=== PATIENT | female | born 1940 | race Caucasian/White ===

== ENCOUNTER → 2016-09-20 07:37 | Outpatient (CLI) | payer MEDICARE, OTHER ==
[2014-04-01 11:45] VITALS: BMI 37.3
[~2016-09-20 07:37] MED LIST: BAYER CHEWABLE81 MG PO; CYCLOBENZAPRINE10 MG PO; DUTOPROL 50-121 EACH PO; LIPITOR40 MG PO; NORVASC10 MG PO; PLAVIX75 MG PO; PREVACID30 MG PO; SYNTHROID75 MCG PO; VALIUM5 MG PO; ZESTRIL40 MG PO
== END | disposition home or self-care (01) ==
LOC: D.MRI 07:37
DX: M54.5 Low back pain (principal)

== ENCOUNTER → 2016-10-29 08:19 | Outpatient (CLI) | payer MEDICARE, OTHER ==
[2014-04-01 11:45] VITALS: BMI 37.3
== END | disposition home or self-care (01) ==
LOC: D.RAD 08:19
DX: R12 Heartburn (principal)

== ENCOUNTER → 2017-01-30 15:02 | Outpatient (CLI) | payer MEDICARE, OTHER ==
[2014-04-01 11:45] VITALS: BMI 37.3
== END | disposition home or self-care (01) ==
LOC: D.CT 15:02
DX: S82.92XA Unspecified fracture of left lower leg, initial encounter for closed fracture (principal)

== ENCOUNTER 2018-06-04 10:49 | Outpatient (CLI) | payer MEDICARE, OTHER ==
[~2018-06-04] VITALS: Ht 154.9 cm; Wt 95.5 kg
--- NOTE | ~2018-06-04 | HEMODYNAMI ---
PATIENT:THAD CONNOLLY MEDICAL RECORD: [id number] : 40 LOCATION:J[facility] ADMISSION DATE: 06/04/18 Generatedon:06/04/201814:01 Patient name: THAD CONNOLLY Patient #: [id number] SSN: DO B: 1940 Date of study: 06/04/2018 Page: Of Hemodynamic Procedure Report Patient Data Patient Demographics Procedure consent was obtained First Name: THAD Gender: Female Last Name: CATHLEEN : 1940 Middle Initial: C Age: 78 year(s) Patient #: [id number] Race: Unknown Additional ID: [id number] Contact details Address: [address] [place] [address] [facility] State: [place] City: [place] Zip code: [address] Past Medical History Allergies Allergen Reaction Date Comments Reported Other allergy 06/04/2018 cortizone, codeine, surgical tape Admission Admission Data Admission Date: 06/04/2018 Admission Time: 10:49 Procedure Procedure Types Cath Procedure Diagnostic Procedure [facility] w/Coronaries Sedation Charges Moderate Sedation up to 15 minutes PCI Procedure Coronary Stent Coronary Stent Initial Procedure Description Procedure Date Procedure Date: 06/04/2018 Procedure Start Time: 13:38 Procedure End Time: 14:00 Procedure Staff Name Function Charbel Juárez MD Performing Physician Frances Decker RN Nurse Radha Robles RT Monitor Randall Miles RT Scrub Chang Kraus RN Email Production Specialist Procedure Data Cath Procedure Fluoroscopy Diagnostic fluoroscopy Total fluoroscopy Time: 4.4 time: 4.4 min min Diagnostic fluoroscopy Total fluoroscopy dose: 748 dose: 748 mGy mGy Contrast Material Contrast Material Type Amount (ml) Isovue 300 124 Entry Location Entry Primary Successful Side Size Upsize Upsize Entry Closure Succes sful Closure Location (Fr) 1 (Fr) 2 (Fr) Remarks Device Remarks Femoral Right 5 Fr 6 Fr Exoseal artery Short Estimated blood loss: 10 ml Diagnostic catheters Device Type Used For End Catheter Placement MULTIPACK JL 4.0 5Fr Left Coronary catheter Angiography MULTIPACK 3DRC 5Fr Right Coronary catheter Angiography MULTIPACK Pigtail 5 Fr LV Angiography catheter Procedure Complications No complications Procedure Medications Medication Administration Route Dosage 0.9% NaCl I.V. 100 ml/hr Oxygen etCO2 Nasal cannula 2 l/min Lidocaine 2% added to field 20 Heparin Flush Bag added to field 2 bags (1000units/500ml NS) Versed I.V. 2 mg Fentanyl I.V. 50 mcg Heparin Bolus I.V. 5000 units Versed I.V. 1 mg Fentanyl I.V. 25 mcg Hemodynamics Rest Heart Rate: 62 (bpm) Pressure Samples Time Site Value (mmHg) Purpose Heart Use Rate(bpm) 13:45 LV 145/12,16 EDP 67 13:46 AO 69/23(18) Pullback 67 13:46 LV 152/35,31 Pullback 67 Gradients Valve Time Site 1 Site 2 Mean SEP/DFP Peak To Heart Use (mmHg) (sec/min) Peak Rate (mmHg) (bpm) Aortic 13:46 LV AO 83 67 152/35,31 69/23(18) Calculations Valve P-P Mean Valve Index Valve Source Name Gradient Area Flow (cm2) Aortic 83 83 Snapshots Pre Cath Intra NCS Post Cath Vital Signs Time Heart Resp SPO2 etCO2 NIBP (mmHg) Rhythm Pain Sedation Rate (ipm) (%) (mmHg) Status Level (bpm) 13:24:56 61 10 97 34 169/80(125) NSR 0 (11) 10(A) , No pain 13:29:37 58 13 98 34.2 158/77(130) NSR 0 (11) 10(A) , No pain 13:34:15 63 16 99 32.6 157/73(108) NSR 0 (11) 10(A) , No pain 13:38:46 62 15 99 38 146/76(113) NSR 0 (11) 9(A) , No pain 13:43:18 61 16 97 36.4 142/71(116) NSR 0 (11) 10(A) , No pain 13:47:53 66 10 98 37.2 149/74(111) NSR 0 (11) 9(A) , No pain 13:52:29 66 20 98 12.1 140/71(109) NSR 0 (11) 9(A) , No pain 13:57:00 70 10 98 36.4 137/76(104) NSR 0 (11) 10(A) , No pain Medications Time Medication Route Dose Verified Delivered Reason Notes Effectiveness by by 13:31:11 0.9% NaCl I.V. 100 Charbel Frances used for ml/hr Morris Jeronimo procedure MD ROSS 13:31:19 Oxygen etCO2 2 Charbel Frances used for Nasal l/min Morris Jeronimo procedure cannula MD ROSS 13:31:26 Lidocaine 2% added 20ml Charbel Charbel for local to vial [facility] anesthetic field MD CONNER 13:31:31 Heparin Flush added 2 Charbel Charbel used for Bag to bags [facility] procedure (1000units/500ml field MD CONNER NS) 13:36:09 Versed I.V. 2 mg Charbel Frances for sedation [facility] Daniel Decker MD, RN 13:36:17 Fentanyl I.V. 50 Charbel Frances for sedation mcg [facility] Daniel Decker MD, RN 13:47:03 Heparin Bolus I.V. 5000 Charbel Frances for verif ied units [facility] anticoagulation with Dr. CONNER RN [place] 13:47:31 Versed I.V. 1 mg Charbel Frances for sedation [facility] Daniel Decker MD, RN 13:47:37 Fentanyl I.V. 25 Charbel Frances for sedation mcg [facility] Daniel Decker MD, RN Procedure Log Time Note 13:05:41 Time tracking: Regular hours (M-F 7:00 - 5:00) 13:05:45 Plan of Care:Hemodynamics will remain stable., Cardiac rhythm will remain stable., Comfort level will be maintained., Respiratory function will remain adequate., Patient/ family verbilizes understanding of procedure., Procedure tolerated without complication., Recovers from procedure without complications.. 13:06:05 Radha Counts RT(R) sent for patient. Start room use. 13:18:07 Diagnostic Cath status Elective 13:18:11 Patient received from Pre/Post Procedure Room to CCL 1 Alert and oriented. Tansferred to table in Supine position. 13:18:12 Warm blankets applied, and lillian hugger turned on for patient comfort. 13:18:13 Correct patient and procedure confirmed by team. 13:18:14 Signed procedure consent form obtained from patient. 13:18:15 ECG and BP/O2 sat monitors applied to patient. 13:18:29 H&P Date Dictated: 05/30/2018 Within 30 days and on chart., H&P Addendum completed by physician on day of procedure. (MUST COMPLETE FOR ALL OUTPATIENTS). 13:18:31 Pre-procedure instructions explained to patient. 13:18:31 Pre-op teaching completed and patient verbalized understanding. 13:18:33 Family in waiting room. 13:18:34 Patient NPO since Midnight. 13:23:03 Vital chart was started 13:23:03 Full Disclosure recording started 13:23:22 Rhythm: sinus rhythm 13:24:16 Patient allergic to Other allergycortizone, codeine, surgical tape 13:24:18 Is the patient allergic to Iodine/contrast media? No. 13:25:35 Is patient on blood thinner?Yes 13:25:38 ACC The patient was administered the following blood thiners within the last 24 hours: ACCPlavix 13:25:54 Patient diabetic? No. 13:26:35 Previous problem with sedation/anesthesia? No ? 13:26:37 Snore? No 13:26:38 Sleep apnea? No 13:26:49 Deviated septum? No 13:26:50 Opens mouth fully? Yes 13:26:51 Sticks out tongue? Yes 13:26:53 Airway obstruction? No ? 13:27:12 Dentures? Yes Partial in 13:27:28 Pre procedure: right dorsailis pedis pulse 2+ Normal; easily identifiable; not easily obliterated 13:27:35 Patient pain scale 0/10 ?. 13:27:41 IV patent on arrival in left forearm with 0.9% NaCl at KVO. 13:27:45 Lab results completed and on chart. 13:27:49 Right groin area was prepped with chlora-prep and draped in sterile fashion 13:27:50 Alarms reviewed by R. N. 13:27:51 Sharps counted by scrub and verified by R.N. 13:27:57 Use device set Femoral Dx 13:27:58 ACIST Syringe (75886) opened to sterile field. 13:27:59 Bag Decanter (2001S) opened to sterile field. 13:28:00 Medline Cath Pack ([id number]) opened to sterile field. 13:28:00 DIAGNOSTIC WIRE .035 260cm J wire (171256) opened to sterile field. 13:28:01 ACIST Hand Control (15835) opened to sterile field. 13:28:02 ACIST Manifold (65741) opened to sterile field. 13:28:03 DIAGNOSTIC Multipack 5Fr catheter set (AB2039) opened to sterile field. 13:28:03 Tegaderm 4 x 4 (1626W) opened to sterile field. 13:28:05 SHEATH 5FR [place] (LEF942) opened to sterile field. 13:28:48 Baseline sample Acquired. 13:31:11 0.9% NaCl 100 ml/hr I.V. was administered by Frances Decker RN; used for procedure; 13:31:19 Oxygen 2 l/min etCO2 Nasal cannula was administered by Frances Decker RN; used for procedure; 13:31:26 Lidocaine 2% 20ml vial added to field was administered by Charbel Juárez MD; for local anesthetic; 13:31:31 Heparin Flush Bag (1000units/500ml NS) 2 bags added to field was administered by Charbel Juárez MD; used for procedure; 13:35:20 Final Timeout: patient, procedure, and site verified with staff and physician. All members of the team are in agreement. 13:35:22 Right groin site verified by team. 13:35:25 Physical assessment completed. ASA score P 2 - A patient with mild systemic disease as per Charbel Juárez MD. 13:35:28 Sedation plan: IV Moderate Sedation Medication:Versed, Fentanyl 13:36:09 Versed 2 mg I.V. was administered by Frances Decker RN; for sedation; 13:36:17 Fentanyl 50 mcg I.V. was administered by Frances Decker RN; for sedation; 13:38:31 Procedure started. 13:38:35 Local anesthetic to right femoral artery with Lidocaine 2% by Charbel Juárez MD.INITIAL ACCESS ONLY 13:39:15 A 5 Fr sheath was inserted into the Right Femoral artery 13:40:30 A MULTIPACK JL 4.0 5Fr catheter was advanced over the wire and used for Left Coronary Angiography. 13:41:50 Catheter removed. 13:41:56 A MULTIPACK 3DRC 5Fr catheter was advanced over the wire and used for Right Coronary Angiography. 13:43:[address] GUERRERO PCI 13:43:16 SHEATH 6FR [place] (FUB306) opened to sterile field. 13:43:19 INFLATOR Merit BasixCompak (FQ3058) opened to sterile field. 13:43:20 WHISPER 300cm guide wire ([id number]) opened to sterile field. 13:43:36 Catheter removed. 13:43:40 A MULTIPACK Pigtail 5 Fr catheter was advanced over the wire and used for LV Angiography. 13:43:52 GUIDE 6FR HS I catheter (LA6HSI) opened to sterile field. 13:45:35 LV gram done using BARBOSA 13:45:36 LV hemodynamics recorded. 13:45:40 Injector settings: Ml/sec: 10, Volume: 20, 13:45:46 EF : 50 % 13:45:56 Catheter removed. 13:47:03 Heparin Bolus 5000 units I.V. was administered by Frances Decker RN; for anticoagulation; verified with Dr. Burton 13:47:09 Sheath upsized to a 6 Fr Short. 13:47:31 Versed 1 mg I.V. was administered by Frances Dceker RN; for sedation; 13:47:37 Fentanyl 25 mcg I.V. was administered by Frances Decker RN; for sedation; 13:48:23 6 Fr HSI guide catheter was inserted over the wire 13:49:19 WHISPER wire advanced. 13:51:29 Place stent Inflation Number: 1 A ISMAEL OTW 3.0 x 12 stent ([id number]) was prepped and advanced across the Mid RCA. The stent was deployed at 14 ABENA for 0:19 (min:sec). 13:52:12 Stent catheter was removed intact over wire. 13:55:06 Place stent Inflation Number: 1 A ISMAEL RX 3.0 x 18 stent ([id number]) was prepped and advanced across the Prox RCA. The stent was deployed at 16 ABENA for 0:18 (min:sec). 13:55:30 Stent catheter was removed intact over wire. 13:55:31 Wire removed. 13:55:31 Guide catheter removed. 13:55:48 Sheath removed intact; hemostasis achieved with Exoseal to the Right Femoral artery. 13:57:24 Procedure ended.(Physican Out) 13:58:41 Fluoroscopy time 04.40 minutes. 13:58:45 Fluoroscopy dose: 748 mGy 13:58:45 Flurop Dose total: 748 13:58:50 Contrast amount:Isovue 300 124ml. 13:58:51 Sharps counted by scrub and verified by R.N. 13:58:53 Insertion/operative site no bleeding no hematoma. 13:58:55 Post-op/insertion site Right Femoral artery dressed using a 4 x 4 and Tegaderm. 13:58:58 Post right femoral artery:stable, clean and dry 13:59:00 Post Procedure Pulses reassessed and unchanged 13:59:02 Post-procedure physical assessment completed. ASA score P 2 - A patient with mild systemic disease as per Charbel Juárez MD. 13:59:04 Post procedure rhythm: unchanged. 13:59:07 Estimated blood loss: 10 ml 13:59:09 Post procedure instruction explained to patient.Patient verbalizes understanding. 13:59:09 Patient needs reinforcement of post procedure teaching. 13:59:33 Procedure type changed to Cath procedure, Diagnostic procedure, LHC, C w/Coronaries, Sedation Charges, Moderate Sedation up to 15 minutes, PCI procedure, Coronary Stent, Coronary Stent Initial 13:59:38 Procedure Complication : No complications 13:59:40 See physician's report for complete and final results. 13:59:49 Report given to Pre/Post Procedure Room. 13:59:52 Vital chart was stopped 13:59:54 Procedure and supply charges have been captured, reviewed, submitted and are correct. 13:59:57 Patient transfered to Pre/Post Procedure Room with Stretcher. 14:00:09 Procedure ended. 14:00:09 Full Disclosure recording stopped 14:00:12 End room use (Document Last) 14:00:23 EXOSEAL 6Fr (EX600) opened to sterile field. Intervention Summary Intervention Notes Time ActionType Lesion and Equipment Used Action# Pressure Duration Attributes 13:51:29 Place stent Mid RCA ISMAEL OTW 3.0 x 1 14 00:19 12 stent ([id number]) 13:55:06 Place stent Prox RCA ISMAEL RX 3.0 x 1 16 00:18 18 stent ([id number]) Device Usage Item Name Manufacture Quantity Catalog Hospital Part Current [facility] Lot# / Number Charge Number Stock Stock Serial# Code ACIST Syringe Acist 1 56039 479048 742625 270253 20 (17754) Medical Systems Inc Bag Decanter Microtek 1 2001S 553760 86666 253241 5 (2001S) Medical Inc. Medline Cath Medline 1 [id number] 510615 92171 583499 5 Pack ([id number]) DIAGNOSTIC St Héctor 1 819532 448140 565455 748706 30 WIRE .035 260cm J wire (352520) ACIST Hand Acist 1 14491 462465 921664 952141 5 Control Medical (55688) Systems Inc ACIST Manifold Acist 1 81162 617162 317119 646775 5 (67352) Medical Systems Inc DIAGNOSTIC Cardinal 1 MC1921 680590 16736 065820 30 Multipack 5Fr Health catheter set (CH2109) Tegaderm 4 x 4 3M 1 1626W 720560 117827 826197 5 (1626W) SHEATH 5FR Terumo 1 EGB318 621458 591302 251448 5 [place] (ZCB163) MULTIPACK JL Cardinal 1 500871 5 4.0 5Fr Health catheter MULTIPACK 3DRC Cardinal 1 744498 5 5Fr catheter Health SHEATH 6FR Terumo 1 ZAM827 574536 739419 795349 40 [place] (RNR198) INFLATOR Merit Merit 1 XB0678 060689 257596 400006 15 [facility] (NM2500) WHISPER 300cm Tang 1 [id number] 132078 388062 395846 5 guide wire Vascular ([id number]) MULTIPACK Cardinal 1 515554 5 Pigtail 5 Fr Health catheter GUIDE 6FR HS I Medtronic 1 LA6HSI 374637 92635 709233 1 catheter (LA6HSI) ISMAEL OTW 3.0 x Medtronic 1 [id number] 376982 696112 967578 5 [id number] 12 stent ([id number]) ISMEAL RX 3.0 x Medtronic 1 [id number] 133459 0777205 584635 5 [id number] 18 stent ([id number]) EXOSEAL 6Fr Cardinal 1 EX600 821182 346328 451996 10 (EX600) Health Signature Audit [place] Stage Time Signature Unsigned Intra-Procedure 06/04/2018 Radha 2:01:04 PM Counts RT(R) Signatures Monitor : Radha Signature : Counts RT Date : Time : [facility] [address] [place] [address]
[2018-06-04] MEDS ORDERED: VITAMIN D31000 UNIT PO (11:04)
[2018-06-04] MEDS ORDERED: OMEPRAZOLE20 M1 PO (11:05)
[2018-06-04] MEDS ORDERED: XANAX0.5 MG PO (11:06)
[2018-06-04] MEDS ORDERED: COZAAR100 MG PO (11:09)
[2018-06-04] MEDS ORDERED: METOPROLOL TART50 MG PO (11:10)
[2018-06-04 11:13] VITALS: BP 153/64; Ht 154.9 cm; Wt 95.5 kg
[2018-06-04] MEDS ORDERED: COZAAR50 MG PO (11:14)
[2018-06-04] MEDS ORDERED: NITROQUICK0.4 MG SL (11:15)
[2018-06-04 11:41] LABS: ANION GAP 15.4 mmol/L (8-16); CALCIUM 9.4 mg/dL (8.5-10.1); CARBON DIOXIDE 22.7 mmol/L (21.0-32.0); CREATININE - SERUM 1.3 mg/dL (0.6-1.3); POTASSIUM - SERUM 4.1 mmol/L (3.5-5.1)
[2018-06-04 12:26] LABS: BASOPHILS 0.5 % (0-2); EOSINOPHILS 3.8 % (0-7); HEMATOCRIT 46.5 % (36.0-48.0); HEMOGLOBIN 15.7 g/dL (12-16); IMMATURE GRANULOCYTES 0.2 % (0-5); LYMPHOCYTES 42.3 % (15-50); MCH 29.2 pg (26.0-34.0); MCHC 33.8 g/dL (31.0-37.0); MCV 86.4 fL (80.0-100.0); MEAN PLATELET VOLUME 10.9 fL (7.4-10.4); MONOCYTES 5.7 % (2-11); NEUTROPHILS 47.5 % (40-80); PLATELET COUNT 185 10x3/uL (130-400); RBC 5.38 10x6/uL (4.00-5.40); RDW 13.1 % (11.5-14.5); WBC 6.7 10x3/uL (4.8-10.8)
--- NOTE | 2018-06-04 14:10 | NUR ---
PT RECEIVED VIA STRETCHER FROM SHEETMETAL WORKER FOR RECOVERY. HR NSR RATE 61, BP 119/68, O2 SAT 97 ON 2L O2 VIA NC. PT AWAKE BUT DROWSY, DR IRVING IN AND EXPLAINED TO PT AND FAMILY PROCEDURE RESULTS AND PLAN OF CARE. 6 FR EXOCELE TO R GROIN, DRESSING CDI NO BLEEDING OR SWELLING NOTED. PEDAL PULSES PALPABLE. PT DENIES CHEST PAIN OR NAUSEA. INSTRUCTED PT TO KEEP HEAD FLAT AND R LEG STRAIGHT, VERBALIZED UNDERSTANDING. CALL LIGHT IN REACH.
--- NOTE | 2018-06-04 14:31 | NUR ---
PT PLACED ON BEDPAN, VOIDED W/O DIFFICULTY. REPOSITIONED FOR COMFORT. R GROIN DRESSING CDI NO BLEEDING OR HEMATOMA NOTED. DENIES PAIN OR NEEDS. VSS. AT BEDSIDE, CALL LIGHT IN REACH
--- NOTE | 2018-06-04 15:00 | NUR ---
PT RESTING QUIETLY WITH EYES CLOSED, HR SINUS LAURA 54, BP 118/57, O2 SAT 96% ON 2L/NC. DENIES CHEST PAIN OR NAUSEA. R GROIN SOFT TO TOUCH NO BLEEDING OR SWELLING NOTED. CALL LIGHT IN REACH.
--- NOTE | 2018-06-04 15:10 | NUR ---
C/O PAIN IN R SHOULDER FROM BP CUFF, MOVED TO R ARM PER REQUEST. BP 76/46. RE POSITIONED CUFF, BP 122/57. FLUIDS OPENED. PT DENIES NAUSEA OR PAIN. HR 56. CALL LIGHT IN REACH.
--- NOTE | 2018-06-04 15:29 | NUR ---
FLUIDS TURNED BY TO KVO. R GROIN DRESSING CDI NO BLEEDING OR SWELLING NOTED. PEDAL PULSE PALPABALE. SIPS OF APPLE JUICE GIVEN PER REQUEST. CALL LIGHT IN REACH.
--- NOTE | 2018-06-04 16:00 | NUR ---
PT RESTING QUIETLY, DENIES PAIN OR NEEDS. R GROIN SOFT, DRESSING CDI NO BLEEDING OR HEMATOMA NOTED. PEDAL PULSES PALPABLE. HR 60, BP 122/64. REMAINS AT BEDSIDE. CALL LIGHT IN REACH
--- NOTE | 2018-06-04 16:28 | NUR ---
PT PLACED ON BEDPAN, VOIDED CLEAR YELLOW URINE. GROIN SOFT, DRESSING CDI NO BLEEDING OR SWELLING NOTED. DENIES PAIN OR NEEDS. VSS. CALL LIGHT IN REACH.
--- NOTE | 2018-06-04 17:00 | NUR ---
HOB ELEVATED SLIGHTLY, SANDWICH SERVED. R GROIN SOFT TO TOUCH NO BLEEDING OR SWELLING NOTED. PEDAL PULSE PALPABLE. DENIES PAIN OR NAUSEA. AT BEDSIDE. CALL LIGHT IN REACH
--- NOTE | 2018-06-04 17:30 | NUR ---
MONITORS REMOVED, IV DC'D WITH CATH INTACT. PT UP AMBULATED TO BATHROOM.
--- NOTE | 2018-06-04 17:45 | NUR ---
DISCHARGE TEACHING COMPLETED, PT AND VERBALIZE UNDERSTANDING. DISCHARGED TO PRIVATE VEHICLE VIA WC
--- NOTE | 2018-06-05 13:30 | OP ---
PATIENT NAME: THAD CONNOLLY MEDICAL RECORD: [id number] :40 LOCATION:D.CAT ADMISSION DATE: SURGEON: ANNALISA IRVING MD DATE OF OPERATION: 06/04/2018 PROCEDURE: Left heart catheterization, selective coronary angiography plus stenting to the right, right femoral artery approach. CATHETERS: A 5-English sheath, 5/4 left and right Nolberto, 5/4 pig. The procedure was well tolerated. The patient was returned to garcia. Sheath was removed. ExoSeal device was placed. FINDINGS: Left ventriculography in 30-degree BARBOSA view: Normal wall motion and normal systolic function. CORONARY ANATOMY: LEFT MAIN: Left main is free of disease. LAD: Free of disease in the diagonal system. CIRCUMFLEX: Free of disease in the marginal system. RIGHT CORONARY: Proximal to the previously placed stent shows about 90% diffuse stenosis. Distal to the previously placed stent shows about 80% more discrete stenosis. IMPRESSION: End stent restenosis. PLAN: Intervention momentarily. A 5-English sheath was exchanged for a 6-English sheath. Hockey stick guide catheter provided excellent guide catheter support. A 300-cm Whisper wire was placed across both lesions down to first vessel. Distal stent was 3.0 x 12 Gray drug-eluting stent. Proximal 90% stenosis was addressed with a 3.0 x 18 drug-eluting stent. Following this, there was excellent resolution of 80% distal stenosis and 90% proximal stenosis. No significant residual. Marked improvement in distal vasculature is noted as well. TRANSINT:[id number] Voice Confirmation ID: [id number] DOCUMENT ID: [id number] ANNALISA IRVING MD at 1330 CC: [id number] DICTATION DATE: 06/04/18 1402 FABRIC COATING SUPERVISOR: 06/04/18 1546 DEP CLI 06/04/[address] [facility] [address] [place] [address]
== END 2018-06-04 17:45 | disposition home or self-care (01) ==
LOC: D.CATH 10:49
PROVIDERS: Internal Medicine Interventional Cardiology
DX: T82.855A Stenosis of coronary artery stent, initial encounter (principal); I20.9 Angina pectoris, unspecified; Z01.812 Encounter for preprocedural laboratory examination
CPT/HCPCS: 93458; C9600

== ENCOUNTER → 2018-11-14 10:00 | Outpatient (CLI) | payer MEDICARE, OTHER ==
[2018-06-04 11:13] VITALS: BMI 39.7
[~2018-11-14 10:00] MED LIST changes: +COZAAR100 MG PO; +COZAAR50 MG PO; +METOPROLOL TART50 MG PO; +NITROQUICK0.4 MG SL; +OMEPRAZOLE20 M1 PO; +VITAMIN D31000 UNIT PO; +XANAX0.5 MG PO
== END | disposition home or self-care (01) ==
LOC: D.MAMMO 10:00
PROVIDERS: ATTEND Family Medicine
DX: Z12.31 Encounter for screening mammogram for malignant neoplasm of breast (principal)

== ENCOUNTER 2019-08-06 11:07 | Outpatient (CLI) | payer MEDICARE, OTHER ==
[~2019-08-06] VITALS: Ht 154.9 cm; Wt 100.0 kg
--- NOTE | ~2019-08-06 | HEMODYNAMI ---
PATIENT:THAD CONNOLLY MEDICAL RECORD: [id number] : 40 LOCATION:[facility] ADMISSION DATE: 08/06/19 Generatedon:08/06/201913:22 Patient name: THAD CONNOLLY Patient #: [id number] SSN: [id number] : 1940 Date of study: 08/06/2019 Page: Of Hemodynamic Procedure Report Patient Data Patient Demographics Procedure consent was obtained First Name: THAD Gender: Female Last Name: CATHLEEN : 1940 [facility] Initial: C Age: 79 year(s) Patient #: [id number] Race: SSN: [id number] Additional ID: [id number] Contact details Address: [address] [place] [address] circle State: [place] City: [place] Zip code: [address] Past Medical History Allergies Allergen Reaction Date Comments Reported Other allergy 06/04/2018 cortizone, codeine, surgical tape Other allergy 08/06/2019 HYDROCORTIZONE, ADHESIVE TAPE, CODEINE Admission Admission Data Admission Date: 08/06/2019 Admission Time: 11:07 Arrival Date: 08/06/2019 Arrival Time: 0:00 Admit Source: Other Insurance Payor: Medicare [facility] #: [id number] Height (in.): 61 BSA: 1.97 (m2) Height (cm.): 154.94 BMI: 41.66 (kg/m2) Weight (lbs.): 220.46 Weight (kg.): 100 Lab Results Lab Result Date: 08/06/2019 Lab Result Time: 0:00 Biochemistry Name Units Result Min Max BUN mg/dl 18 --(---*)-- 7 18 Creatinine mg/dl 1.2 --(---*)-- 0.6 1.3 eGFR ml/min 46 *-(----)-- 90 120 NONAFRICAN CBC Name Units Result Min Max Hematocrit % 44.5 --(*---)-- 42 54 Hemoglobin g/dl 14.9 --(-*--)-- 13.5 17.5 Procedure Procedure Types Cath Procedure Diagnostic Procedure [facility] w/Coronaries Sedation Charges Moderate Sedation up to 15 minutes PCI Procedure Coronary Stent Coronary Stent Initial Hemochron ACT Test Procedure Description Procedure Date Procedure Date: 08/06/2019 Procedure Start Time: 13:01 Procedure End Time: 13:21 Procedure Staff Name Function Charbel Juárez MD Performing Physician Kelly Guaman RT Monitor Francheska Ramos RT Scrub Efrain Garcia RN Nurse Floridalma Estes RT Operator Lights Indication Chest pain Procedure Data Cath Procedure Fluoroscopy Diagnostic fluoroscopy Total fluoroscopy Time: 4.4 time: 4.4 min min Diagnostic fluoroscopy Total fluoroscopy dose: 717 dose: 717 mGy mGy Contrast Material Contrast Material Type Amount (ml) Isovue 370 96 Entry Location Entry Primary Successful Side Size Upsize Upsize Entry Closure Succes sful Closure Location (Fr) 1 (Fr) 2 (Fr) Remarks Device Remarks Femoral Right 5 Fr Exoseal artery Estimated blood loss: 10 ml Diagnostic catheters Device Type Used For End Catheter Placement MULTIPACK JL 4.0 5Fr Procedure catheter MULTIPACK 3DRC 5Fr Procedure catheter MULTIPACK Pigtail 5 Fr Procedure catheter Procedure Complications No complications Procedure Medications Medication Administration Route Dosage 0.9% NaCl I.V. 100 ml/hr Oxygen etCO2 Nasal cannula 2 l/min Heparin Flush Bag added to field 2 bags (1000units/500ml NS) Lidocaine 2% added to field 20 Versed I.V. 1 mg Fentanyl I.V. 50 mcg Heparin Bolus I.V. 5000 units Vasotec I.V. 2.5 mg Versed I.V. 1 mg Fentanyl I.V. 50 mcg Hemodynamics Rest BSA: 1.97 (m2) HGB: 14.9 (g/dl) O2 Consumption: Estimated: 167.54 (ml/min) O2 Co nsumption indexed: Estimated:85.05 (ml/min/m) Heart Rate: 57 (bpm) Pressure Samples Time Site Value (mmHg) Purpose Heart Use Rate(bpm) 13:06 LV 168/7,6 Snapshot 54 Gradients Valve Time Site Site Mean SEP/DFP Peak To Heart Use 1 2 (mmHg) (sec/min) Peak Rate (mmHg) (bpm) Aortic 13:07 LV AO 57 Snapshots Pre Cath Intra NCS Post Cath Vital Signs Time Heart Resp SPO2 etCO2 NIBP (mmHg) Rhythm Pain Sedation Rate (ipm) (%) (mmHg) Status Level (bpm) 12:58:00 57 14 96 38 216/89(146) NSR 0 (11) 10(A) , No pain 13:02:55 56 28 97 37.2 202/89(162) NSR 0 (11) 10(A) , No pain 13:09:02 59 17 95 40.2 219/88(141) NSR 0 (11) 10(A) , No pain 13:14:01 59 18 95 40.2 206/86(166) NSR 0 (11) 9(A) , No pain 13:18:58 59 17 96 40.2 192/89(155) NSR 0 (11) 9(A) , No pain Medications Time Medication Route Dose Verified Delivered Reason Notes Effectiveness by by 12:54:16 0.9% NaCl I.V. 100 Efrain Efrain Per physician ml/hr Radha Garcia RN RN 12:54:25 Oxygen etCO2 2 Efrain Efrain for low 02 sats Nasal l/min Radha Garcia cannula RN RN 12:54:37 Heparin Flush added 2 Efrain Efrain used for Bag to bags Radha Garcia procedure (1000units/500ml field RN RN NS) 12:54:46 Lidocaine 2% added 20ml Efrain Efrain for local to vial Lorigan Enaigan anesthetic [facility] RN RN 13:01:57 Versed I.V. 1 mg Efrain Efrain for sedation Radha Garcia RN RN 13:02:07 Fentanyl I.V. 50 Efrain Efrain for sedation mcg Radha Garcia RN RN 13:10:30 Heparin Bolus I.V. 5000 Efrain Efrain for units Radha Garcia anticoagulation RN RN 13:10:50 Vasotec I.V. 2.5 Efrain Efrain for mg Radha Garcia hypertension RN RN 13:14:19 Versed I.V. 1 mg Efrain Efrain for sedation Radha Garcia RN RN 13:14:25 Fentanyl I.V. 50 Efrain Efrain for sedation mcg Radha Garcia RN bulb inspector Log Time Note 12:39:29 Diagnostic Cath Status : Elective 12:39:57 Indication : Chest pain 12:40:05 Procedure Status Elective Heart Cath (OP). 12:40:23 Floridalma Franklyn RT(R) sent for patient. Start room use. 12:40:30 Time tracking: Regular hours (M-F 7:00 - 5:00) 12:40:43 Plan of Care:Hemodynamics will remain stable., Cardiac rhythm will remain stable., Comfort level will be maintained., Respiratory function will remain adequate., Patient/ family verbilizes understanding of procedure., Procedure tolerated without complication., Recovers from procedure without complications.. 12:40:49 Admit Source: Other 12:42:27 H&P Date Dictated: 08/06/2019 New H&P dictated by physician.. 12:42:28 Pre-procedure instructions explained to patient. 12:42:29 Pre-op teaching completed and patient verbalized understanding. 12:42:37 Family in waiting room. 12:42:40 Patient NPO since Midnight. 12:43:23 Patient allergic to Other allergyHYDROCORTIZONE, ADHESIVE TAPE, CODEINE 12:43:31 Patient received from Pre/Post Procedure Room to CCL 1 Alert and oriented. Tansferred to table in Supine position. 12:43:41 Signed procedure consent form obtained from patient. 12:43:42 Warm blankets applied, and lillian hugger turned on for patient comfort. 12:43:42 Correct patient and procedure confirmed by team. 12:43:43 ECG and BP/O2 sat monitors applied to patient. 12:43:53 Lab results completed and on chart. 12:43:54 Alarms reviewed by R. N. 12:43:55 Sharps counted by scrub and verified by R.N. 12:54:16 0.9% NaCl 100 ml/hr I.V. was administered by Efrain Garcia RN; Per physician; Verbal order read back and verified. 12:54:25 Oxygen 2 l/min etCO2 Nasal cannula was administered by Efrain Garcia RN; for low 02 sats; Verbal order read back and verified. 12:54:37 Heparin Flush Bag (1000units/500ml NS) 2 bags added to field was administered by Efrain Garcia RN; used for procedure; Verbal order read back and verified. 12:54:46 Lidocaine 2% 20ml vial added to field was administered by Efrain Garcia RN; for local anesthetic; Verbal order read back and verified. 12:54:51 Vital chart was started 12:55:49 Risk of Mortality: 1.2 12:55:52 Risk of blood transfusion: 1.0 12:55:55 Risk of DELILAH: 3.6 12:55:59 Right groin area was prepped with chlora-prep and draped in sterile fashion 12:56:04 Stress Test: no; N/A ? 12:56:10 Pre procedure: right dorsailis pedis pulse 2+ Normal; easily identifiable; not easily obliterated 12:56:12 Patient pain scale 0/10 ?. 12:56:29 IV patent on arrival in left antecubital with 0.9% NaCl at [facility]. 12:57:19 Lab Result : BUN 18 mg/dl 12:57:19 Lab Result : Creatinine 1.2 mg/dl 12:57:19 Lab Result : eGFR NONAFRICAN 46 ml/min 12:57:19 Lab Result : Hemoglobin 14.9 g/dl 12:57:19 Lab Result : Hematocrit 44.5 % 12:57:25 Arrival Date: 08/06/2019 12:00:00 AM 12:57:32 Insurance Payor : Medicare 12:57:58 Patient Height : 61 inches 12:58:03 Patient Weight : 220.46 lbs 12:59:13 ----Pre-sedation anethsthesia assessment.---- 12:59:16 Previous problem with sedation/anesthesia? No ? 12:59:17 Snore? Yes 12:59:18 Sleep apnea? No 12:59:20 Deviated septum? No 12:59:21 Opens mouth fully? Yes 12:59:22 Sticks out tongue? Yes 12:59:24 Airway obstruction? No ? 12:59:27 Dentures? No ? 12:59:31 Is the patient allergic to Iodine/contrast media? No. 12:59:32 Was the patient premedicated? N/A 12:59:34 Is patient on blood thinner?Yes 12:59:38 ACC The patient was administered the following blood thiners within the last 24 hours: ACCAspirin, ACCPlavix 12:59:40 Patient diabetic? No. 12:59:42 If diabetic: On Metformin? No 12:59:43 Patient not . Patient is over age 55. 12:59:44 Full Disclosure recording started 12:59:46 Baseline sample Acquired. 12:59:53 Rhythm: sinus bradycardia 12:59:58 --------ALL STOP TIME OUT------ 12:59:58 Final Timeout: patient, procedure, and site verified with staff and physician. All members of the team are in agreement. 13:00:00 Right groin site verified by team. 13:00:03 Fire Safety Assessment: A--An alcohol-based skin anteseptic being used preoperatively., C--Open oxygen or nitrous oxide is being used., D--An ESU, laser, or fiber-optic light is being used. 13:00:06 Physical assessment completed. ASA score P 2 - A patient with mild systemic disease as per Charbel Juárez MD. 13:00:09 3a) 45-59 Moderately reduced kidney function. 13:00:15 Maximum allowable contrast dose (3.7 X eGFR X 0.75)128 ml. 13:00:18 Sedation plan: IV Moderate Sedation Medication:Versed, Fentanyl 13:00:21 Use device set Femoral Dx 13:00:22 ACIST Syringe (37340) opened to sterile field. 13:00:23 Bag Decanter (2002S) opened to sterile field. 13:00:24 Medline Cath Pack ([id number]) opened to sterile field. 13:00:25 ACIST Hand Control (87492) opened to sterile field. 13:00:26 ACIST Manifold (94803) opened to sterile field. 13:00:27 DIAGNOSTIC Multipack 5Fr catheter set (UT7775) opened to sterile field. 13:00:28 SHEATH 5FR Jefferson (ZGA241) opened to sterile field. 13:00:29 EMERALD Guide Wire (882-312) opened to sterile field. 13:00:34 Procedure started. 13:01:29 Local anesthetic to right femoral artery with Lidocaine 2% by Charbel Juárez MD.INITIAL ACCESS ONLY 13:01:37 A 5 Fr sheath was inserted into the Right Femoral artery 13:01:57 Versed 1 mg I.V. was administered by Efrain Garcia RN; for sedation; Verbal order read back and verified. 13:02:07 Fentanyl 50 mcg I.V. was administered by Efrain Garcia RN; for sedation; Verbal order read back and verified. 13:02:27 Zero performed for pressure channel P1 13:02:38 A MULTIPACK JL 4.0 5Fr catheter was advanced over the wire and used for Procedure. 13:03:41 LCA angiography performed. 13:03:44 Injector settings: Ml/sec: 3, Volume: 6, 13:04:48 Catheter removed. 13:04:53 A MULTIPACK 3DRC 5Fr catheter was advanced over the wire and used for Procedure. 13:06:14 RCA angiography performed. 13:06:16 Injector settings: Ml/sec: 3, Volume: 6, 13:06:18 Catheter removed. 13:06:25 A MULTIPACK Pigtail 5 Fr catheter was advanced over the wire and used for Procedure. 13:06:30 LV gram done using BARBOSA 13:07:16 LV hemodynamics recorded. 13:07:21 Injector settings: Ml/sec: 5, Volume: 15, 13:07:26 EF : 55 % 13:07:34 Catheter removed. 13:07:37 Proceeding to intervention. 13:07:47 Use device set DE PEYSTER PCI 13:07:50 SHEATH 6FR Jefferson (VHG591) opened to sterile field. 13:07:53 INFLATOR Merit BasixCompak (XX9513) opened to sterile field. 13:07:54 WHISPER 300cm guide wire ([id number]) opened to sterile field. 13:08:34 GUIDE 6FR XBLAD 3.5 catheter ([id number]) opened to sterile field. 13:09:13 Pre PCI Site: [place] mCirc has 80% stenosis. 13:09:20 6 Fr XBLAD 3.5 guide catheter was inserted over the wire 13:10:03 WHISPER 300 wire advanced. 13:10:30 Heparin Bolus 5000 units I.V. was administered by Efrain Garcia RN; for anticoagulation; Verbal order read back and verified. 13:10:50 Vasotec 2.5 mg I.V. was administered by Efrain Garcia RN; for hypertension; Verbal order read back and verified. 13:12:22 Wire advanced across lesion. 13:14:19 Versed 1 mg I.V. was administered by Efrain Garcia RN; for sedation; Verbal order read back and verified. 13:14:25 Fentanyl 50 mcg I.V. was administered by Efrain Garcia RN; for sedation; Verbal order read back and verified. 13:16:59 Place stent Inflation Number: 1 A ISMAEL OTW 3.5 x 12 stent ([id number]) was prepped and advanced across the Mid CX . The stent was deployed at 12 ABENA for 0:00 (min:sec) . 13:17:05 Stent catheter was removed intact over wire. 13:17:05 Wire removed. 13:17:06 Guide catheter removed. 13:17:28 EXOSEAL 6Fr (EX600) opened to sterile field. 13:18:05 Sheath removed intact; hemostasis achieved with Exoseal to the Right Femoral artery. 13:18:10 Procedure ended.(Physican Out) 13:18:35 Fluoroscopy time 04.40 minutes. 13:18:40 Fluoroscopy dose: 717 mGy 13:18:40 Flurop Dose total: 717 13:18:45 Dose Area Product 95815 mGy/cm. 13:19:17 Contrast amount:Isovue 370 96ml. 13:19:20 Maximum allowable dose exceeded? No. 13:19:22 Sharps counted by scrub and verified by R.N. 13:19:29 Post-op/insertion site Right Femoral artery dressed using a 4 x 4 and Tegaderm. 13:19:34 Post right femoral artery:stable, soft, clean and dry 13:19:36 Post Procedure Pulses reassessed and unchanged 13:19:49 Post procedure: right dorsailis pedis pulse 2+ Normal; easily identifiable; not easily obliterated. 13:19:53 Post-procedure physical assessment completed. ASA score P 2 - A patient with mild systemic disease as per Charbel Juárez MD. 13:20:05 Post procedure rhythm: unchanged. 13:20:08 Estimated blood loss: 10 ml 13:20:16 Post procedure instruction explained to patient.Patient verbalizes understanding. 13:20:17 Patient needs reinforcement of post procedure teaching. 13:20:39 Procedure type changed to Cath procedure, Diagnostic procedure, LHC, LHC w/Coronaries, Sedation Charges, Moderate Sedation up to 15 minutes, PCI procedure, Coronary Stent, Coronary Stent Initial, Hemochron ACT Test 13:21:01 Procedure and supply charges have been captured, reviewed, submitted and are correct. 13:21:06 Procedure Complication : No complications 13:21:10 Vital chart was stopped 13:21:12 [facility] Findings: MVD- PCI performed (see procedure note) 13:21:13 Operative report dictated upon procedure completion. 13:21:14 See physician's report for complete and final results. 13:21:16 Report given to Pre/Post Procedure Room. 13:21:22 Patient transfered to Pre/Post Procedure Room with Stretcher. 13:21:25 Procedure ended. 13:21:25 Full Disclosure recording stopped 13:21:31 ACC-PCI Only Patient was given prescriptions, or instructed by Charbel Juárez MD to start/continue the following medications upon discharge: Plavix 13:21:33 End room use (Document Last) 13:21:43 End room use (Document Last) 13:21:48 ACT drawn and resulted at 271 seconds. (normal therapeutic range 180-240 seconds). 13:22:26 End room use (Document Last) Intervention Summary Intervention Notes Time ActionType Lesion and Equipment Action# Pressure Duration Attributes Used 13:16:59 Place stent Mid CX ISMAEL OTW 3.5 1 12 00:00 x 12 stent ([id number]) Device Usage Item Name Manufacture Quantity Catalog Hospital Part Current Mini [facility] Lot# / Number Charge Number Stock Stock Serial# Code ACIST Syringe Acist 1 83591 331586 225720 375932 20 (09827) Medical Systems Inc Bag Decanter Microtek 1 2001S 014320 01271 318966 5 (2001S) Medical Inc. Medline Cath Medline 1 [id number] 018133 97071 709276 5 Pack ([id number]) ACIST Hand Acist 1 42195 423644 248079 272789 5 Control Medical (85993) Systems Inc ACIST Acist 1 78011 720947 817535 077825 5 Manifold Medical (37279) Systems Inc DIAGNOSTIC Cardinal 1 BD4975 301805 66025 712578 30 Multipack 5Fr Health catheter set (XB7624) SHEATH 5FR Terumo 1 MJR381 387570 993946 845004 5 Jefferson (GVC199) EMERALD Guide Cardinal 1 502-066 531983 153108 808040 5 Wire Health (909-228) MULTIPACK JL Cardinal 1 702180 5 4.0 5Fr Health catheter MULTIPACK Cardinal 1 169145 5 3DRC 5Fr Health catheter MULTIPACK Cardinal 1 322716 5 Pigtail 5 Fr Health catheter SHEATH 6FR Terumo 1 JKD363 064040 345754 504227 40 Jefferson (TJZ239) INFLATOR Merit 1 QQ1169 844459 334877 964597 15 [facility] Medical BasixCompak (KJ4026) WHISPER 300cm Tang 1 [id number] 471467 231683 410474 5 guide wire Vascular ([id number]) GUIDE 6FR Cardinal 1 [id number] 148955 534523 072931 10 XBLAD 3.5 Health catheter (79005638) ISMAEL OTW 3.5 Medtronic 1 [id number] 232778 6757715 120236 5 [id number] x 12 stent ([id number]) EXOSEAL 6Fr Cardinal 1 EX600 122979 546649 185257 10 (EX600) Health Signature Audit [place] Stage Time Signature Unsigned Intra-Procedure 08/06/2019 Kelly Guaman 1:21:43 PM RT(R) Intra-Procedure 08/06/2019 Efrain 1:22:26 PM Radha RN Intra-Procedure 08/06/2019 Charbel Earl 1:22:48 PM Daniel CONNER [facility] [address] [place] [address]
[2019-08-06] MEDS ORDERED: BENICAR40 MG PO (12:05)
[2019-08-06 12:20] VITALS: BP 229/95; Ht 154.9 cm; Wt 100.0 kg
[2019-08-06 12:42] LABS: BASOPHILS 0.3 % (0-2); EOSINOPHILS 4.4 % (0-7); HEMATOCRIT 44.5 % (36.0-48.0); HEMOGLOBIN 14.9 g/dL (12-16); IMMATURE GRANULOCYTES 0.3 % (0-5); LYMPHOCYTES 45.6 % (15-50); MCHC 33.5 g/dL (31.0-37.0); MCV 83.6 fL (80.0-100.0); MEAN PLATELET VOLUME 10.4 fL (7.4-10.4); MONOCYTES 8.5 % (2-11); NEUTROPHILS 40.9 % (40-80); PLATELET COUNT 199 10x3/uL (130-400); RBC 5.32 10x6/uL (4.00-5.40); WBC 6.6 10x3/uL (4.8-10.8)
[2019-08-06 12:50] LABS: ANION GAP 12.8 mmol/L (8-16); CALCIUM 9.4 mg/dL (8.5-10.1); CARBON DIOXIDE 25.4 mmol/L (21.0-32.0); CHOL - HDL RATIO 3.6 ratio (2.3-4.1); CREATININE - SERUM 1.2 mg/dL (0.6-1.3); LDL-HDL RATIO 1.9 ratio (1.5-3.5); POTASSIUM - SERUM 4.2 mmol/L (3.5-5.1)
--- NOTE | 2019-08-06 13:35 | NUR ---
PT RECEIVED BACK TO ROOM FROM LEAD ASSISTANT MANAGER FOR RECOVERY. PT ASLEEP BUT VERBALLY AROUSABLE, DENIES PAIN OR DISCOMFORT. IV PATENT INFUSING VIA L ARM PER ORDERS. PT PLACED ON CARDIAC MONITORS AND O2 VIA 2L/NC. HR SB RATE 54, BP 186/82, RR 13, SAT 96. R GROIN SOFT, DRESSING CDI NO S/S HEMATOMA OR BLEEDING. LEG PINK AND WARM, PEDAL PULSES PALPABLE. PT INSTRUCTED TO KEEP HEAD FLAT ON PILLOW AND LEG STRAIGHT, SHE VERBALIZED UNDERSTANDING. DR IRVING WAS IN ROOM BEFORE PT ARRIVED AND SPOKE WITH REGARDING PROCEDURE RESULTS AND PLAN OF CARE. CALL LIGHT IN REACH
--- NOTE | 2019-08-06 14:02 | NUR ---
PT RESTING COMFORTABLY. HR 51, BP 178/78, RR 14. R GROIN SOFT, DRESSING CDI NO S/S HEMATOMA NOTED. PT DENIES PAIN OR NEEDS AT THIS TIME. CALL LIGHT IN REACH AND FAMILY AT BS
--- NOTE | 2019-08-06 14:45 | NUR ---
PT RESTING COMFORTABLY, DENIES PAIN OR DISCOMFORT. R GROIN SOFT, DRESSING REMAINS CDI NO S/S HEMATOMA. CALL LIGHT IN REACH, FAMILY AT BS. VSS
--- NOTE | 2019-08-06 14:49 | HP ---
PATIENT: THAD CONNOLLY MEDICAL RECORD: [id number] ACCOUNT: [id number] LOCATION:JACKIE : 40 ADMISSION DATE: 08/06/19 PCP: ULI BETH DO HISTORY AND PHYSICAL EXAMINATION HISTORY OF PRESENT ILLNESS: A 79-year-old female with known history of coronary artery disease, status post intervention most recently intervention of the right coronary approximately a year ago, has a history of hypertension and hyperlipidemia. She was seen in clinic with progressive angina. She is on combination of beta blockade, ARB, statin therapy. Having abnormal Cardiolite stress test. She is brought to the laborer driver to delinate anatomy. PAST MEDICAL HISTORY: Includes; 1. History of hypertension. 2. Hyperlipidemia. 3. Hyperglycemia. MEDICATIONS: Include Plavix 75 every day, atorvastatin 40 every day, losartan 50 every day, metoprolol 50 b.i.d., Xanax 0.5 every 8 hours p.r.n., aspirin 81 every day, Synthroid 75 mcg every day. ALLERGIES: CODEINE, HYDROCORTISONE. SOCIAL HISTORY: . Nonsmoker and nondrinker. Easily takes care of all her ADLs. PHYSICAL EXAMINATION: GENERAL: Pleasant female in no acute distress, appears stated age. HEENT: Normocephalic, atraumatic. NECK: No JVD or bruit. HEART: Regular. LUNGS: Stein clear. ABDOMEN: Soft, nontender. EXTREMITIES: Pulses 2+. No edema. IMPRESSION: Progressive angina with known history of disease, abnormal Cardiolite stress testing. PLAN: Angiography, intervention based on the above. TRANSINT:[id number] Voice Confirmation ID: [id number] DOCUMENT ID: [id number] ANNALISA IRVING MD at 1449 CC: [id number] DICTATION DATE: 08/06/19 1239 COMPUTATIONAL THEORY SCIENTIST: 08/06/19 133[id number] [place] [address]
--- NOTE | 2019-08-06 15:15 | NUR ---
R GROIN SOFT, DRESSING CDI NO S/S HEMATOMA. VSS. PT MORE AWAKE TALKING W FAMILY. CALL LIGHT IN REACH.
--- NOTE | 2019-08-06 15:45 | NUR ---
NO CHANGE IN PT CONDITION. GROIN SOFT, DRESSING REMAINS CDI NO S/S HEMATOMA OR BLEEDING. VSS. FAMILY AT BS
--- NOTE | 2019-08-06 16:16 | NUR ---
R GROIN SOFT, NO BLEEDING OR S/S HEMATOMA. HOB ELEVATED SLIGHTLY. CRANBERRY JUICE GIVEN, PT DECLINES SANDWICH AT THIS TIME. NO C/O PAIN OR DISCOMFORT. VSS. CALL LIGHT IN REACH
--- NOTE | 2019-08-06 16:48 | NUR ---
PT DOING WELL, GROIN REMAINS SOFT, NO S/S HEMATOMA. CALL LIGHT IN REACH, VSS.
--- NOTE | 2019-08-06 17:05 | NUR ---
DISCHARGE INSTRUCTIONS REVIEWED W PT AND DAUGHTER, THEY BOTH VERBALIZED UNDERSTANDING. PT IS ALREADY A DAILY PLAVIX TAKER AND SHE WAS INSTRUCTED TO KEEP TAKING DAILY. IV REMOVED W CATH INTACT, MONITORS REMOVED AND PT UP TO DRESS. 1710 PT AMBULATED TO BR BEFORE DRESSING, VOIDING W/O DIFFICULITY.
--- NOTE | 2019-08-06 17:23 | NUR ---
PT DISCHARGED VIA WC TO DAUGHTER IN PRIVATE VEHICLE. PT HAD ALL BELONGINGS AND DISCHARGE PAPERWORK.
--- NOTE | 2019-08-10 11:19 | OP ---
PATIENT NAME: THAD CONNOLLY MEDICAL RECORD: [id number] :40 LOCATION:D.CAT ADMISSION DATE: SURGEON: ANNALISA IRVING MD DATE OF OPERATION: 08/06/2019 PROCEDURE: Left heart catheterization, selective coronary angiography, right femoral artery approach. CATHETERS: A 5-Prydeinig sheath, 5/4 left and right Nolberto, 5/4 pig. The procedure was well tolerated. We proceeded to PTCA stenting to the circumflex. FINDINGS: Left ventriculography in 30-degree BARBOSA view; normal wall motion, normal systolic function. CORONARY ANATOMY: LEFT MAIN: Left main is free of disease. LAD: Luminal plaquing, otherwise no focal obstructive disease. CIRCUMFLEX: Has 80% stenosis, moderate size circumflex. RIGHT CORONARY ARTERY: Area of previous stenting is widely patent. IMPRESSION: Progressive angina despite medical therapy. PLAN: Intervention of the circumflex obtuse marginal momentarily. DESCRIPTION OF PROCEDURE: A 5-Prydeinig sheath was exchanged for a 6-Prydeinig sheath. XB LAD guiding catheter provided excellent guiding catheter support followed by 300 Whisper wire placed across the tightly occluded circumflex down this portion of this vessel. Stent deployed was a 3.5 x 12 Gray drug eluting stent up to 12 atmospheres for 45 seconds. Final angiography shows excellent resolution 80% stenosis, no significant residual. CLAY flow was 3 throughout the procedure. Sheath closed with ExoSeal device. The patient was previously on Plavix. Heparin was used during the case. TRANSINT:[id number] Voice Confirmation ID: [id number] DOCUMENT ID: [id number] ANNALISA IRVING MD at 1119 CC: [id number] DICTATION DATE: 08/06/[address] BAILIFF: 08/06/19 1512 DEP CLI 08/06/19 [place] [address]
== END 2019-08-06 17:20 | disposition home or self-care (01) ==
LOC: D.CATH 11:07
PROVIDERS: ATTEND Internal Medicine Interventional Cardiology
DX: I25.119 Atherosclerotic heart disease of native coronary artery with unspecified angina pectoris (principal); I10 Essential (primary) hypertension; E78.5 Hyperlipidemia, unspecified; R73.9 Hyperglycemia, unspecified
CPT/HCPCS: 93458; C9600